=== PATIENT | female | born 1980 | race Caucasian/White ===

== ENCOUNTER 2017-08-17 16:52 | Emergency (ER) | payer MEDICAID ==
[~2017-08-17] VITALS: Ht 160 cm; Wt 100.0 kg
[2017-08-17 16:54] VITALS: BP 160/118
[2017-08-17] MEDS ORDERED: IBUPROFEN 200 MG TABLET ONE (17:25)
[2017-08-17] MEDS ORDERED: IBUPROFEN 200 MG TABLET PO ONE (17:30)
== END 2017-08-17 18:23 | disposition home or self-care (01) ==
LOC: ED 18:20
DX: S82.64XA Nondisplaced fracture of lateral malleolus of right fibula, initial encounter for closed fracture (principal); X50.1XXA Overexertion from prolonged static or awkward postures, initial encounter; Y93.89 Activity, other specified; Y92.89 Other specified places as the place of occurrence of the external cause; Y99.8 Other external cause status
CPT/HCPCS: 29515

== ENCOUNTER 2018-06-16 11:32 | Emergency (ER) | payer MEDICAID ==
[~2018-06-16] VITALS: Ht 160 cm; Wt 99.5 kg
[2018-06-16] MEDS ORDERED: SODIUM CHLORIDE 0.9% 1,000ML IVBOLUS ONE (12:30)
[2018-06-16] MEDS ORDERED: METOCLOPRAMIDE 5 MG/ML, 2ML IVPush ONE (12:30)
[2018-06-16] MEDS ORDERED: KETOROLAC 30 MG/1 ML IVPush ONE (12:30)
[2018-06-16] MEDS ORDERED: SODIUM CHLORIDE FLUSH 10ML SYR IVF ONE (12:30)
[2018-06-16] MEDS ORDERED: DIPHENHYDRAMINE 50 MG/ML, 1ML IVPush ONE (12:30)
[2018-06-16] MEDS ORDERED: DIPHENHYDRAMINE 50 MG/ML, 1ML ONE (12:33)
[2018-06-16] MEDS ORDERED: METOCLOPRAMIDE 5 MG/ML, 2ML ONE (12:34)
[2018-06-16] MEDS ORDERED: KETOROLAC 30 MG/1 ML ONE (12:34)
[2018-06-16 13:10] VITALS: BP 161/103
== END 2018-06-16 13:35 | disposition home or self-care (01) ==
LOC: ED 12:32
DX: G43.C1 Periodic headache syndromes in child or adult, intractable (principal); J02.9 Acute pharyngitis, unspecified; R53.83 Other fatigue; R61 Generalized hyperhidrosis
CPT/HCPCS: 96374; 96375; 99284; J1200; J1885; J2765; J7030

== ENCOUNTER 2019-07-20 21:03 | Emergency (ER) | payer MEDICAID, OTHER ==
[~2019-07-20] VITALS: Ht 160 cm; Wt 102.0 kg
--- NOTE | 2019-07-20 21:07 | NUR ---
NO ANSWER WHEN CALLED FOR TRIAGE
[2019-07-20 21:13] VITALS: BP 136/97
[2019-07-20] MEDS ORDERED: DEXAMETHASONE 4 MG TABLET PO ONE (21:30)
[2019-07-20] MEDS ORDERED: DEXAMETHASONE 4 MG TABLET ONE (21:50)
== END 2019-07-20 22:22 | disposition home or self-care (01) ==
LOC: ED 22:16
DX: J02.0 Streptococcal pharyngitis (principal); H92.01 Otalgia, right ear
CPT/HCPCS: 87880; 99283

== ENCOUNTER 2020-04-25 19:39 | Emergency (ER) | payer SELFPAY ==
[~2020-04-25] VITALS: Ht 160 cm; Wt 99.2 kg
[2020-04-25] MEDS ORDERED: METHYLNALTREXONE 12 MG/0.6 ML SYR SQ ONE ×2 (21:07→21:30)
[2020-04-25 21:13] VITALS: BP 172/100
--- NOTE | 2020-04-25 21:18 | NUR ---
FIRST CONTACT WITH PT. PT SITTING UP IN [facility], APPEAERS UNCOMFORTABLE. PT REPORTS CONSTIPATION X 04/16 DESPITE MULTIPLE OTC TREATMENTS. ABD SOFT, NON-TENDER. PT DENIES N/V. PT MEDICATED PER EMAR. UA COLLECTED AND SENT TO LAB.
[2020-04-25 21:41] LABS: MICROSCOPIC INDICATED
[2020-04-25 21:50] LABS: BASOPHILS # (AUTO) 0.08 x10^3/uL (0-0.1); BASOPHILS % (AUTO) 1 % (0-1); EOSINOPHILS % (AUTO) 2 % (1-7); LYMPHOCYTES # (AUTO) 2.56 x10^3/uL (1-3.4); LYMPHOCYTES % (AUTO) 28 % (22-44); MD NO; MEAN CORPUSCULAR HEMOGLOBIN 28.5 pg (27.0-34.8); MEAN CORPUSCULAR HGB CONC 32.4 g/dL (32.4-35.8); MEAN CORPUSCULAR VOLUME 87.9 fL (80-100); MEAN PLATELET VOLUME 9.7 fL (7.4-10.4); MONOCYTES # (AUTO) 0.74 x10^3/uL (0.2-0.8); MONOCYTES % (AUTO) 8 % (2-9); NEUTROPHILS # (AUTO) 5.44 x10^3/uL (1.8-6.8); NEUTROPHILS % (AUTO) 60 % (42-75); PLATELET COUNT 378 x10^3/uL (130-400); RED BLOOD COUNT 4.38 x10^6/uL (3.82-5.3); RED CELL DISTRIBUTION WIDTH 15.6 % (9.6-15.2)
[2020-04-25 22:02] LABS: ALANINE AMINOTRANSFERASE 21 U/L (12-78); ALBUMIN 3.6 g/dL (3.4-5.0); ANION GAP 6 mmol/L (5-15); CALCIUM 8.5 mg/dL (8.5-10.1); CHLORIDE 105 mmol/L (98-107); CREATININE 0.67 mg/dL (0.55-1.02)
[2020-04-25 22:06] LABS: ALKALINE PHOSPHATASE 82 U/L (45-117); BILIRUBIN,TOTAL 0.3 mg/dL (0.2-1.0); TOTAL PROTEIN 7.8 g/dL (6.4-8.2)
--- NOTE | 2020-04-25 22:09 | NUR ---
PT AMBULATED STEADILY TO BATHROOM WO ASSISTANCE. NAD NOTED.
[2020-04-25] MEDS ORDERED: NITROFURANTOIN (MACROBID) 100 MG CAPSULE ONE (23:19)
[2020-04-25] MEDS ORDERED: DICYCLOMINE 20 MG TABLET ONE (23:19)
[2020-04-25] MEDS ORDERED: ONDANSETRON ODT 4 MG ONE (23:19)
[2020-04-25] MEDS ORDERED: DICYCLOMINE 20 MG TABLET PO ONE (23:30)
[2020-04-25] MEDS ORDERED: NITROFURANTOIN (MACROBID) 100 MG CAPSULE PO ONE (23:30)
[2020-04-25] MEDS ORDERED: ONDANSETRON ODT 4 MG PO ONE (23:30)
--- NOTE | 2020-04-25 23:41 | NUR ---
BP REMAINS ELEVATED, 175/110. ERP AWARE. OKAY TO DC WO TX. PT EDUCATED ON RISK OF SUSTAINED HTN AND IMPORTANCE OF ESTABLISHING WITH A PCP. PT DEMONSTRATES UNDERSTANDING. DC EDUCATION PROVIDED, PT DEMONSTRATES UNDERSTANDING. PT AMBULATED STEADILY TO DC WITH RN
== END 2020-04-25 23:43 | disposition home or self-care (01) ==
LOC: ED 21:49
DX: N30.00 Acute cystitis without hematuria (principal); R10.84 Generalized abdominal pain; K59.00 Constipation, unspecified; R11.2 Nausea with vomiting, unspecified; I10 Essential (primary) hypertension
CPT/HCPCS: 36415; 74021; 80053; 81001; 83690; 84703; 85025; 87077; 87086; 96372; 99284; Q0162; 87186